=== PATIENT | male | born 1970 | race Native Hawaiian/Other Pacific Islander ===

== ENCOUNTER 2018-01-02 19:03 | Emergency (ER) | payer SELFPAY ==
[2018-01-02] MEDS ORDERED: MOTRIN PO ONE (21:38)
[2018-01-02] MEDS ORDERED: NORCO 10/325 PO ONE (21:38)
[2018-01-02] MEDS ORDERED: ZOFRAN ODT PO ONE (21:38)
[2018-01-02 21:54] LABS: Basophils % (Auto) 0.4 % (0.0-1.8); Eosinophils # (Auto) 0.1 K/mm3 (0.0-0.4); Eosinophils % (Auto) 1.4 % (0.0-4.3); Hematocrit 41.2 % (35.5-45.6); Hemoglobin 14.1 gm/dl (11.8-15.2); Lymphocytes # (Auto) 2.1 K/mm3 (1.2-5.4); Lymphocytes % (Auto) 27.2 % (13.4-35.0); Mean Corpuscular HGB Conc 34 % (32-34); Mean Corpuscular Hemoglobin 33 pg (28-32); Mean Corpuscular Volume 97 fl (84-94); Monocytes # (Auto) 0.7 K/mm3 (0.0-0.8); Monocytes % (Auto) 8.6 % (0.0-7.3); Platelet Count 194 K/mm3 (140-440); Red Blood Count 4.26 M/mm3 (3.65-5.03); Red Cell Distribution Width 13.6 % (13.2-15.2)
--- NOTE | 2018-01-02 21:56 | Emergency Department Report ---
ED Headache HPI - General Chief Complaint: Headache Stated Complaint: LESIONS ON HEAD/SEVERE HEADACHES Time Seen by Provider: 01/02/18 21:22 Source: regulatory specialist - History of Present Illness Initial Comments: 47-year-old male past medical history diabetes, shingles presents with complaint of 3 weeks of persistent left-sided headache. Patient speaks Tajik which I speak fluently, accompanied by family members at bedside Patient states he had shingles outbreak was treated for this at [facility] in [facility] 3 weeks ago. Patient states that he has had persistent superficial pain on the skin of his left side head which is giving him a headache. Describes it as a persistent burning sensation on the left side of the scalp. Denies any blurry vision or difficulty hearing. Denies any fevers or chills. States that he has burning sensation on the skin which is persistent. He has been taking Benadryl and gabapentin as prescribed by emergency room but has not had significant relief of his pain. Patient is awake alert and oriented 3 fully lucid. Visible scab lesions on his left temporal frontal and occipital scalp. States that they will open sores before and have scabbed over. Denies any other complaints at this time. States he is on metformin for his diabetes. The patient adamantly denies any blurry vision or floaters. Timing/Duration: constant, other (3 weeks) Head Injury Location: temporal, occipital, parietal Recent Head Trauma: other (shingles outbreak on head) Allergies/Adverse Reactions: Allergies No Known Allergies Allergy (Unverified 01/02/18 19:27) Home Medications: Ambulatory Orders Benadryl CAP 25 mg PO Q6H PRN 01/02/18 Capsaicin 1 applicatio TP BID PRN #1 cream..g. 01/02/18 Gabapentin 300 mg PO TID 01/02/18 HYDROcodone/APAP 5-325 [[place] 5/325] 1 each PO Q6HR PRN #15 tablet 01/02/18 Ibuprofen [Motrin] 800 mg PO Q8HR PRN #20 tablet 01/02/18 Lidocaine [Lidocaine Cream] 1 applicatio TP BID PRN #1 cream..g. 01/02/18 metFORMIN 500 mg PO BID 01/02/18 ED Review of Systems ROS: Stated complaint: LESIONS ON HEAD/SEVERE HEADACHES Other details as noted in HPI Constitutional: denies: chills, fever Eyes: denies: eye pain, eye discharge, vision change ENT: denies: ear pain, throat pain Respiratory: denies: cough, shortness of breath, wheezing Cardiovascular: denies: chest pain, palpitations Endocrine: no symptoms reported Gastrointestinal: denies: abdominal pain, nausea, diarrhea Genitourinary: denies: urgency, dysuria Musculoskeletal: denies: back pain, joint swelling, arthralgia Skin: as per HPI, rash, lesions Neurological: headache. denies: weakness, paresthesias Psychiatric: denies: anxiety, depression Hematological/Lymphatic: denies: easy bleeding, easy bruising ED Past Medical Hx - Past Medical History Hx Diabetes: Yes - Surgical History Hx Cholecystectomy: Yes - Social History Smoking Status: Never Smoker Substance Use Type: None - Medications Home Medications: Home Medications Medication Instructions Recorded Confirmed Last Taken Type Benadryl CAP 25 mg PO Q6H PRN 01/02/18 01/02/18 Unknown History Capsaicin 1 applicatio TP BID PRN #1 01/02/18 Unknown Rx cream..g. Gabapentin 300 mg PO TID 01/02/18 01/02/18 Unknown History HYDROcodone/APAP 5-325 [[place] 1 each PO Q6HR PRN #15 tablet 01/02/18 Unknown Rx 5/325] Ibuprofen [Motrin] 800 mg PO Q8HR PRN #20 tablet 01/02/18 Unknown Rx Lidocaine [Lidocaine Cream] 1 applicatio TP BID PRN #1 01/02/18 Unknown Rx cream..g. metFORMIN 500 mg PO BID 01/02/18 01/02/18 Unknown History ED Physical Exam - General Limitations: No Limitations General appearance: alert, in no apparent distress - Head Head exam: Present: atraumatic, normocephalic - Eye Eye exam: Present: normal appearance, PERRL, EOMI Pupils: Present: normal accommodation - ENT ENT exam: Present: normal exam, mucous membranes moist - Expanded ENT Exam Expanded Ear exam: Present: normal external inspection (no vesicles or blisters within the left ear canal tympanic membrane appears normal. No clinical signs of Twan Muniz syndrome or bullous myringitis) - Neck Neck exam: Present: normal inspection - Respiratory Respiratory exam: Present: normal lung sounds bilaterally. Absent: respiratory distress - Cardiovascular Cardiovascular Exam: Present: regular rate, normal rhythm. Absent: systolic murmur, diastolic murmur, rubs, gallop - GI/Abdominal GI/Abdominal exam: Present: soft, normal bowel sounds - Rectal Rectal exam: Present: deferred - Extremities Exam Extremities exam: Present: normal inspection - Back Exam Back exam: Present: normal inspection - Neurological Exam Neurological exam: Present: alert, oriented X3, CN II-XII intact, normal gait - Expanded Neurological Exam Expanded Patient oriented to: Present: person, place, time Cranial nerves: EOM's Intact: Normal, Facial Sensation: Normal (facial expressions intact no slurred speech no difficulty smiling frowning of closing eyes. Forehead skin crunches makes skin folds with frowning equally on both sides) Cerebellar function: Finger to Nose: Normal, Romberg: Normal Sensory exam: Upper Extremity Light Touch: Normal, Lower Extremity Light Touch: Normal Motor strength exam: RUE: 5, LUE: 5, RLE: 5, LLE: 5 Best Eye Response (Dee): (4) open spontaneously Best Motor Response (Dee): (6) obeys commands Best Verbal Response (Dee): (5) oriented Allen Total: 15 - Psychiatric Psychiatric exam: Present: normal affect, normal mood - Skin Skin exam: Present: warm, dry, intact, normal color. Absent: rash - Expanded Skin Exam Expanded Distribution of rash: face Description of rash: Present: blisters (healing blisters on the left side scalp temporal parietal and occipital region) ED Course Vital Signs 01/02/18 01/02/18 01/02/18 19:35 21:46 22:32 Temperature 99.1 F Pulse Rate 70 Respiratory 16 18 18 Rate Blood Pressure 136/95 O2 Sat by Pulse 97 Oximetry ED Medical Decision Making - Lab Data Result diagrams: 01/02/18 21:43 01/02/18 21:43 - Medical Decision Making A/P: Postherpetic neuralgia on scalp 1-labwork is unremarkable, slight hyperglycemia the patient has no anion gap 2-CT head is unremarkable. Vital signs stable, patient is afebrile. No meningeal signs at this time no photo or phonophobia reported by patient. Vision is 20/20 bilaterally. Advised patient to return to the ED for any lethargy confusion nausea vomiting neck rigidity visual acuity disturbances or visual disturbances or any associated fever chills or cough. Patient stated he understood my instructions. I explained this to him in Tajik just be careful only. I also explained this to his at bedside. They stated they understood my instructions and will follow up with his primary care appointment in 11 days 3-I advised patient to continue gabapentin. We'll prescribe a short course of additional analgesics including Motrin and [place]. Will also provide topical capsaicin cream and topical lidocaine 4- I educated patient and patient's family at bedside on signs and symptoms of postherpetic neuralgia and basic management of [email or web address]- patient states he has follow-up with primary care in [facility] in 11 days Critical care attestation.: If time is entered above; I have spent that time in minutes in the direct care of this critically ill patient, excluding procedure time. ED Disposition Clinical Impression: Post herpetic neuralgia Disposition: TO HOME OR SELFCARE Is pt being admited?: No Does the pt Need Aspirin: No Condition: Stable Instructions: Herpes Zoster (ED), Capsaicin (On the skin), Lidocaine (On the skin) Prescriptions: Capsaicin 1 applicatio TP BID PRN #1 cream..g. PRN Reason: Pain HYDROcodone/APAP 5-325 [[place] 5/325] 1 each PO Q6HR PRN #15 tablet PRN Reason: Pain Ibuprofen [Motrin] 800 mg PO Q8HR PRN #20 tablet PRN Reason: Pain Lidocaine [Lidocaine Cream] 1 applicatio TP BID PRN #1 cream..g. PRN Reason: Pain Referrals: [facility] [Provider Group] - 3-5 Days Forms: Accompanied Note Time of Disposition: 23:08 Print Language: ROMANIAN
[2018-01-02 22:05] LABS: BUN/Creatinine Ratio 28; Blood Urea Nitrogen 17 mg/dL (9-20); Hemolysis Index 5
--- NOTE | 2018-01-02 23:05 | Cat Scan Report ---
FINAL REPORT EXAM: CT HEAD/BRAIN WO CON HISTORY: left sided headache TECHNIQUE: CT head without contrast PRIORS: None. FINDINGS: No acute intra-axial or extra-axial hemorrhage is identified. There is no evidence of midline shift or mass effect. The ventricles and sulci are within normal limits. Warren-white matter differentiation is intact. No acute parenchymal abnormalities seen. Bony calvarium is grossly intact. Visualized portions of the mastoids and paranasal sinuses are unremarkable. IMPRESSION: Negative CT head
[2018-01-02 23:32] VITALS: BP 133/85
== END 2018-01-02 23:32 | disposition home or self-care (01) ==
LOC: ED 19:03
DX: B02.29 Other postherpetic nervous system involvement (principal); E11.9 Type 2 diabetes mellitus without complications
CPT/HCPCS: 36415; 70450; 80048; 82962; 85025; 99284; Q0162